=== PATIENT | male | born 1990 | race Caucasian/White ===

== ENCOUNTER 2016-05-19 09:34 | Emergency (ER) | payer OTHER ==
[~2016-05-19] VITALS: Ht 170.2 cm; Wt 68.2 kg
[~2016-05-19 09:34] MED LIST: AMOX875T2 PO; CLIN300C4 PO; HYDR1TAB69 PO
[2016-05-19 09:47] VITALS: BP 119/72; PULSE 70; RESP 12; O2SAT 99
--- NOTE | 2016-05-19 09:56 | ED.REPORT ---
HPI-Abd Pain M Under 40 Date of Service May 19, 2016 ED Provider: Blake Fong MD Pt is a 25 y/o male presenting to the ED c/o intermittent epigastric abdominal pain onset yesterday. He says he was diagnosed with "pancreatitis" at [facility] [place] ED yesterday and he left AMA prior to treatment. He takes 1000 mg Ibuprofen at a time each day for dental pain because it "doesn't hardly work" to relieve his pain. He takes these large doses 1-2 times each day and has been taking it for "as long as he can remember". He has attempted suicide with Ibuprofen 3 times previously. He uses meth, last use 2 days ago. He admits to alcohol use as well. A CT scan was performed yesterday and he was told his pancreas was "very inflamed. He describes his pain as intermittent gas pain. His pain is not exacerbated with eating. He is experiencing no pain at time of interview. Denies any SI, HI or suicidal intention/plan. Nursing Notes Stated Complaint: STOMACH PAIN Chief Complaint: Male Abdominal Pain Nursing Notes Reviewed: Yes Allergies: Coded Allergies: No Known Allergies (Unverified Allergy, Unknown, 05/19/16) Scheduled Amoxicillin Trihydrate (Amoxicillin 875MG Tab) 875 Mg Tablet 875 MG PO BID Clindamycin Hcl (Clindamycin Hcl) 300 Mg Capsule 300 MG PO DAILY Omeprazole (Omeprazole) 20 Mg Tablet.dr 20 MG PO BID Scheduled PRN Hydrocod/APAP-Expunged, Do Not Renew! (Hydrocod/APAP 5/500-Expunged, Do Not Renew!) 1 Each Tablet 1 EACH PO Q4 PRN PRN General Time Seen by MD: 09:53 Chief Complaint Abdominal pain Hx Obtained From: Patient Arrived By: Walk-in Sudden in Onset?: No Onset Occurred: Yesterday Symptom Duration: Intermittent Progression since Onset: Intermittent Location: : Epigastric Quality: Painful Severity: Current: No pain currently Severity: Maximum: Moderate Recent Healthcare: Recent doctor visit, Recent testing, Previous diagnosis, Prior workup Past Medical History Past Medical History Asthma Bipolar Depression Multiple suicide attempts with Ibuprofen Past Surgical History None reported Smoking History Never Smoker Social History Alcohol Use: 1-3 per day Drug Use: Denies drug use Ambulatory Status Independent Review of Systems Constitutional: Denies: Chills, Fever Respiratory: Denies: Non-productive cough, Shortness of breath Cardiovascular: Denies: Chest pain, Dyspnea on exertion GI: Reports: Abdominal pain, Denies: Nausea, Vomiting Complete sys rev & neg: except as marked. Physical Exam Initial Vital Signs Vital Signs (First) Date Time Temp Pulse Resp B/P Pulse Ox O2 Delivery O2 Flow Rate FiO2 05/19/16 09:47 36.5 70 12 119/72 99 Room Air Initial VS: Reviewed, Vital signs normal Head / Eyes: Atraumatic, Normocephalic, PERRL ENT: Mucous membranes moist, Conjunctiva normal, No scleral icterus Neck: Supple, Full range of motion Extremities: Vascular intact, Neuro intact, No swelling, No tenderness Skin: Warm, Dry, No cyanosis Neurologic: Alert, Oriented, Nonfocal Psychiatric: Mood/affect normal, Behavior normal, Normal thought content General/Constitutional: Awake, Alert, No acute distress, Cooperative, Not toxic appearing Respiratory / Chest: Atraumatic, Breath sounds NL, Breath sounds = bilat, No respiratory distress, No rales, No rhonchi, No wheezing, No retractions, No stridor, No chest tenderness, No chest wall deformity, No crepitus Cardiovascular: Heart rate NL, Regular rhythm, Heart sounds NL, No gallop, No murmurs, No rubs, Cap refill not delayed, Peripheral circulation NL Abdomen: Atraumatic, Soft, No guarding, No rebound, No distention, No palpable mass Tenderness/Guarding/Rebound: Positive: Tender epigastric (mild) Back: Full range of motion, Painless range of motion, No CVA tenderness Interpretation & Diagnostics Lab Results Interpretation Result Diagram: 05/19/16 1137 05/19/16 1137 Test 05/19/16 10:00 05/19/16 11:37 Hold Urine Received (Received) White Blood Count 6.9th/mm3 (3.8-10.1) Red Blood Count 4.89mil/mm3 (4.40-5.80) Hemoglobin 15.5g/dL (13.8-17.2) Hematocrit 45.1% (41.0-50.0) Mean Corpuscular Volume 92.2fL (81-100) Mean Corpuscular Hemoglobin 31.7pg (27.0-35.0) Mean Corpuscular Hemoglobin Concent 34.4% (32.0-37.0) Red Cell Distribution Width 12.3% (12.3-15.4) Platelet Count 287bil/L (150-400) Neutrophils (%) (Auto) 68.1% (40-74) Lymphocytes (%) (Auto) 19.9% (14-46) Monocytes (%) (Auto) 9.7% (4-12) Eosinophils (%) (Auto) 1.9% (0-5) Basophils (%) (Auto) 0.3% (0-3) Sodium Level 142mEq/L (134-144) Potassium Level 4.0mEq/L (3.5-5.2) Chloride Level 104mEq/L (97-108) Carbon Dioxide Level 26mmol/L (18-29) Blood Urea Nitrogen 10mg/dL (6-20) Creatinine 0.81mg/dL (0.76-1.27) Estimat Glomerular Filtration Rate 123mL/min (>59) Glucose Level 81mg/dL (60-99) Calcium Level 9.3mg/dL (8.5-10.1) Total Bilirubin 0.3mg/dL (0.0-1.2) Aspartate Amino Transf (AST/SGOT) 112U/L (0-50) Alanine Aminotransferase (ALT/SGPT) 279U/L (0-44) Alkaline Phosphatase 91U/L (25-150) Total Protein 7.3g/dL (6.4-8.4) Albumin 4.8g/dL (3.4-5.0) Lipase 111U/L (13-60) Re-Eval/Medical Decision Med Decision/Clinical Course Pt is a 25 y/o male presenting to the ED c/o intermittent epigastric abdominal pain onset yesterday. He says he was diagnosed with "pancreatitis" at [facility] yesterday and he left AMA prior to treatment. He takes 1000 mg Ibuprofen at a time each day for dental pain because it "doesn't hardly work" to relieve his pain. He takes these large doses 1-2 times each day and has been taking it for "as long as he can remember". He has attempted suicide with Ibuprofen 3 times previously. He uses meth, last use 2 days ago. He admits to alcohol use as well. A CT scan was performed yesterday and he was told his pancreas was "very inflamed. He describes his pain as intermittent gas pain. His pain is not exacerbated with eating. He is experiencing no pain at time of interview. Denies any SI, HI or suicidal intention/plan. Here in the emergency department the patient is afebrile stable vital signs and examination as above. Meds given: IV Pantoprazole and IV fluids Labs notable as below: CBC: unremarkable CMP: moderately elevated transaminases, total bili within normal limits Lipase 111 CT abd/pelvis from yesterday at [facility] emergency department: pancreas normal in appearance with intrahepatic biliary dilatation. Gallbladder was surgically absent or contracted. Patient reported complete symptom resolution with above medications. Overall presentation at this time seems most consistent with gastritis secondary to excessive NSAID use. I see no evidence of acute surgical intra-abdominal process. CT scan yesterday did not show any findings suggestive of acute pancreatitis. His lipase today is mildly elevated though the overall clinical picture does not seem particularly convincing for acute pancreatitis. Patient will be started on omeprazole and has been referred to GI. I suspect that he likely has gastric irritation or potentially peptic ulcer disease related to his NSAID use. He will require repeat laboratory testing and consideration for further workup of biliary ductal process such as gallstone or mass lesion should his symptoms fail to improved/resolved though this time I do not feel that this workup is immediately indicated. I suspect that his mildly elevated transaminases and lipase are secondary to his polysubstance and alcohol abuse. Follow-up and return precautions were reviewed in detail and he was discharged in good condition. Re-Evaluation/Progress : Time of Eval: 12:10 Re-Evaluation/Progress Note: Pt rechecked. Informed pt of plan for treatment. Pt understands and agrees with plan for treatment. F/U and RTER warnings given. All questions addressed. Counseled Regarding: Diagnosis, Lab results, Need for follow-up, When/why to return to ED Patient Discharge & Departure Primary Impression: Gastritis Additional Impressions: Excessive use of nonsteroidal anti-inflammatory drug (NSAID) Elevated transaminase level Elevated lipase Epigastric pain Polysubstance abuse Alcohol abuse Disposition: Home Discharge Condition All VS Reviewed: Yes Condition: Stable Patient Instructions: Gastritis (ED) Additional Instructions: Thank you for seeking care at the emergency room. It is difficult for us to make definitive diagnoses in the ED but we believe that you are experiencing gastritis. Our primary goal today in the ED was to evaluate you for any life-threatening conditions. Your evaluation was reassuring. There was no sign of pancreatitis today. You will be discharged with a prescription for Omeprazole. Take this as directed. I highly recommend you stop taking Ibuprofen completely. Consistently high doses can cause severe kidney and liver damage as well as ulcers. You should follow-up with your primary doctor in the next week. A GI referral has also been given to you. You may need an outpatient right upper abdomen exam or endoscopy performed to further evaluate your symptoms and to rule out a peptic ulcer. You should return to the ED immediately if you develop fevers, vomiting, severe pain, or any other concerning signs or symptoms. Thank you for letting us partake in your care today. Referrals: Zachariah Carson MD [facility] Scribe Attestation Portions of this note were transcribed by Gee Anderson. I, Dr. Fong personally performed the history, physical exam and medical decision-making; I reviewed and confirmed the accuracy of the information in the transcribed note. Signed by Thomas Childers, 05/19/16 - 1130 Blake Fong MD May 19, 2016 09:55 GEE ANDERSON May 19, 2016 11:15
[2016-05-19] MEDS ORDERED: 0.9% Sodium Chloride 1,000 ML IV ONE (11:14)
[2016-05-19] MEDS ORDERED: LidocaineVisc 2%:Antacid 1:1 10 mL Syringe PO ONE (11:15)
[2016-05-19] MEDS ORDERED: Ondansetron 2 mg/mL 2 mL Inj IVPUSH ONE (11:15)
[2016-05-19] MEDS ORDERED: Pantoprazole 4 mg/mL 10 mL Inj IVPUSH ONE (11:15)
[2016-05-19 11:40] LABS: BASOPHILS % (AUTO) 0.3 % (0-3); EOSINOPHILS % (AUTO) 1.9 % (0-5); MONOCYTES % (AUTO) 9.7 % (4-12); Mean Corpuscular Hemoglobin 31.7 pg (27.0-35.0); Mean Corpuscular Volume 92.2 fL (81-100); NEUTROPHILS % (AUTO) 68.1 % (40-74); Platelet Count 287 bil/L (150-400)
[2016-05-19] MEDS ORDERED: OMEP20TA86 PO (12:10)
[2016-05-19 12:35] VITALS: BP 121/74; PULSE 66; RESP 12; O2SAT 99
== END 2016-05-19 12:36 | disposition home or self-care (01) ==
LOC: SED 09:34
DX: K29.70 Gastritis, unspecified, without bleeding (principal); F10.10 Alcohol abuse, uncomplicated; F19.10 Other psychoactive substance abuse, uncomplicated; R74.0 Nonspecific elevation of levels of transaminase and lactic acid dehydrogenase [LDH]; R74.8 Abnormal levels of other serum enzymes; J45.909 Unspecified asthma, uncomplicated; F31.9 Bipolar disorder, unspecified; Z79.1 Long term (current) use of non-steroidal anti-inflammatories (NSAID)
CPT/HCPCS: 36415; 80053; 83690; 85025; 96361; 96374; 96375; 99284; J2405; J7030